=== PATIENT | female | born 2000 | race Caucasian/White ===

== ENCOUNTER 2023-12-28 11:28 | Outpatient (RCR) | payer OTHER, SELFPAY ==
[2023-12-14] MEDS: VENOFER 110 MG IV (11:39)
[2023-12-14 11:50] VITALS: BP 119/74
[2023-12-14 12:55] VITALS: BP 102/57
[2023-12-21 11:35] VITALS: BP 108/69
[2023-12-21] MEDS: VENOFER 110 MG IV (11:53)
[2023-12-21 13:36] VITALS: BP 101/54
[2023-12-28 11:36] VITALS: BP 124/75
[2023-12-28] MEDS: VENOFER 110 MG IV (11:53)
[2023-12-28 12:55] VITALS: BP 111/63
== END 2023-12-29 23:59 | disposition home or self-care (01) ==
LOC: OID 11:28
PROVIDERS: ATTENDING PHYSICIAN Internal Medicine; FAMILY PHYSICIAN Nurse Practitioner Family
DX: D50.0 Iron deficiency anemia secondary to blood loss (chronic) (principal); K52.9 Noninfective gastroenteritis and colitis, unspecified; K20.0 Eosinophilic esophagitis
CPT/HCPCS: 96365; J1756

== ENCOUNTER 2024-01-11 11:34 | Outpatient (RCR) | payer OTHER, SELFPAY ==
[2024-01-04 11:45] VITALS: BP 95/67
[2024-01-04] MEDS: VENOFER 110 MG IV (11:57)
[2024-01-04 13:09] VITALS: BP 103/57
[2024-01-11 11:35] VITALS: BP 111/63
[2024-01-11] MEDS: VENOFER 110 MG IV (11:48)
[2024-01-11 12:59] VITALS: BP 100/58
== END 2024-01-12 08:08 | disposition home or self-care (01) ==
LOC: OID 11:34
PROVIDERS: ATTENDING PHYSICIAN Internal Medicine; FAMILY PHYSICIAN Nurse Practitioner Family
DX: D50.0 Iron deficiency anemia secondary to blood loss (chronic) (principal); N92.0 Excessive and frequent menstruation with regular cycle; T45.4X5A Adverse effect of iron and its compounds, initial encounter; Y93.89 Activity, other specified
CPT/HCPCS: 96365; J1756

== ENCOUNTER 2025-08-28 06:27 | Day surgery (SDC) | payer BC, SELFPAY | END 2025-08-28 14:48 | disposition home or self-care (01) | LOC: GI 06:27 | PROVIDERS: ATTENDING PHYSICIAN Internal Medicine | DX: K20.0 Eosinophilic esophagitis (principal); R07.89 Other chest pain; K31.89 Other diseases of stomach and duodenum | CPT/HCPCS: 43239; 88305; 88342 ==